=== PATIENT | female | born 1985 | race African-American/Black ===

== ENCOUNTER 2023-02-09 04:31 | Day surgery (SDC) | payer OTHER ==
[2023-02-03 17:24] VITALS: BMI 41.3
[2023-02-09 09:49] LABS: EOS % 6.1 % (0-4.5); HEMATOCRIT 23.4 % (32.4-45.2); MCHC 29.1 g/dl (32.0-36.0); MEAN CELL VOLUME 68.5 fl (80-96); MEAN PLT VOLUME 8.2 fl (7.5-11.1); NEUT % 58.9 % (42.8-82.8); PLATELET COUNT 572 10^3/uL (134-434); RBC 3.42 M/mm3 (3.60-5.2); RDW 22.9 % (11.6-15.6); WHITE BLOOD COUNT 7.4 K/mm3 (4.0-10.0)
[2023-02-09 09:53] LABS: MCH 19.9 pg (25.7-33.7)
[2023-02-09 09:55] LABS: HEMOGLOBIN 6.8 GM/dL (10.7-15.3)
[2023-02-09 10:15] LABS: ANISOCYTOSIS 3+; MACROCYTOSIS 0
[2023-02-09] MEDS ORDERED: ONDANSETRON 4 MG/2 ML VIAL IVPUSH PRN (12:11)
[2023-02-09] MEDS ORDERED: IBUPROFEN 800 MG/8 ML IJ IVPB PRN (12:11)
[2023-02-09] MEDS ORDERED: IBUPROFEN 600 MG TABLET (FP) PO PRN (12:11)
[2023-02-09] MEDS ORDERED: oxyCODONE HCL 5 MG TABLET PO PRN (12:11)
[2023-02-09] MEDS ORDERED: ELECTROLYTE-148 SOLN 1,000 ML IV SCH (12:15)
[2023-02-09] MEDS ORDERED: LIDOCAINE HCL/PF 2% SDV 5ML VIAL ONE (12:37)
[2023-02-09] MEDS ORDERED: PROPOFOL 20 ML ONE ×2 (12:37→12:55)
[2023-02-09] MEDS ORDERED: MIDAZOLAM HCL 2 MG/2 ML SINGLE DOSE VIAL ONE (12:38)
[2023-02-09] MEDS ORDERED: KETOROLAC TROMETHAMINE 30 MG/1 ML VIAL ONE (13:23)
[2023-02-09] MEDS ORDERED: LACTATED RINGERS SOLUTION 1,000 ML IV SCH (13:45)
[2023-02-09 16:06] VITALS: RESP 18
[2023-02-09 16:09] VITALS: TEMP 98
[2023-02-09 16:12] VITALS: BP 108/68; PULSE 69
== END 2023-02-09 15:54 | disposition home or self-care (01) ==
LOC: JASU-SURG 04:31
PROVIDERS: ATTEND Obstetrics & Gynecology
PROC: 0UDB8ZX Extraction of Endometrium, Via Natural or Artificial Opening Endoscopic, Diagnostic (ICD-10-PCS; principal; 2023-02-09 10:30)
DX: N92.0 Excessive and frequent menstruation with regular cycle (principal); D64.9 Anemia, unspecified; N85.00 Endometrial hyperplasia, unspecified; E66.01 Morbid (severe) obesity due to excess calories
CPT/HCPCS: 36415; 81025; 85025; 86850; 86900; 86901; 87635; 94760